=== PATIENT | female | born 1960 | race Caucasian/White ===

== ENCOUNTER → 2017-06-29 | Outpatient (CLI) | payer OTHER ==
[~2017-06-29] MED LIST: ACYC800T99 PO; LEV125 PO; LEVO137T23 PO; PER PO; ZOST19404 SQ
--- NOTE | 2017-06-29 15:42 | RADIOLOGY IMAGING REPORT ---
FACILITY: [facility] [place] PATIENT NAME: VICTORINA ODONNELL : [id number] MR: [id number] V: [id number] EXAM DATE: ORDERING PHYSICIAN: FABY MONTEIRO TECHNOLOGIST: Nusrat Khoury PROCEDURE:BILATERAL DIGITAL SCREENING MAMMOGRAM WITH CAD ASSISTED INTERPRETATION & 3D TOMOSYNTHESIS COMPARISON:Prior mammograms 04/26/16, 10/30/14 INDICATIONS:SCREENING/ASYMPTOMATIC TISSUE DENSITY: Scattered fibroglandular densities. FINDINGS: Views obtained bilateral 2D full field CC & MLO and corresponding 3D tomography. There is no mammographic finding suspicious for malignancy, and no significant change compared to prior mammograms. DIAGNOSTIC CATEGORY 1--NEGATIVE. RECOMMENDATIONS: ROUTINE MAMMOGRAM AND CLINICAL EVALUATION. IMPRESSION: BIRADS 1: Negative RECOMMENDATION: Annual bilateral screening mammogram. Dictated by: Estelle Hadley M.D. on 06/29/2017 at 14:16 Transcribed by: BEN on 06/29/2017 at 14:44 Approved by: Estelle Hadley M.D. on 06/29/2017 at 15:41 [facility]
== END ==
LOC: MAMO 07:07
PROVIDERS: ATTEND Physician Assistant
DX: Z12.31 Encounter for screening mammogram for malignant neoplasm of breast (principal)
CPT/HCPCS: 77063; 77067

== ENCOUNTER → 2018-10-28 | Outpatient (CLI) | payer OTHER ==
--- NOTE | 2018-10-30 13:48 | RADIOLOGY IMAGING REPORT ---
FACILITY: [facility] PATIENT NAME: VICTORINA ODONNELL : [id number] MR: [id number] V: [id number] EXAM DATE: [id number] ORDERING PHYSICIAN: FABY MONTEIRO TECHNOLOGIST: Andria Pascual PROCEDURE: BILATERAL DIGITAL SCREENING MAMMOGRAM WITH CAD ASSISTED INTERPRETATION & 3D TOMOSYNTHESIS. REASON FOR STUDY: Screening. FAMILY HISTORY OF BREAST CANCER: BREAST PROCEDURES/TREATMENTS: COMPARISON: 06/28/2017. VIEWS OBTAINED: 2D & 3D full field CC & MLO projections. BREAST DENSITY: Demonstrates scattered fibroglandular tissue elements. MAMMOGRAM FINDINGS: There is no suspicious mass, calcification, or architectural distortion. IMPRESSION: BIRADS 1: Negative. DIAGNOSTIC CATEGORY 1--NEGATIVE. RECOMMENDATIONS: ROUTINE MAMMOGRAM AND CLINICAL EVALUATION IN 1YR. Dictated by: Tim Altman M.D. on 10/30/2018 at 10:38 Transcribed by: BEN on 10/30/2018 at 10:56 Approved by: Tim Altman M.D. on 10/30/2018 at 13:44 [facility]
== END ==
LOC: MAMO 10-16 01:06
PROVIDERS: ATTEND Physician Assistant
DX: Z12.31 Encounter for screening mammogram for malignant neoplasm of breast (principal)
CPT/HCPCS: 77063; 77067